=== PATIENT | female | born 1985 | race Caucasian/White ===

== ENCOUNTER → 2024-01-09 15:26 | Outpatient (BNVA) | payer OTHER, SELFPAY | PROVIDERS: PCP Family Medicine; Visit Provider Family Medicine | DX: Z13.220 Encounter for screening for lipoid disorders (principal); Z13.6 Encounter for screening for cardiovascular disorders; R42 Dizziness and giddiness; Z76.89 Persons encountering health services in other specified circumstances | CPT/HCPCS: 80053; 80061; 85025 ==

== ENCOUNTER → 2025-03-31 15:17 | Outpatient (BNVA) | payer OTHER, SELFPAY | PROVIDERS: PCP Family Medicine; Visit Provider Nurse Practitioner | DX: S82.64XA Nondisplaced fracture of lateral malleolus of right fibula, initial encounter for closed fracture (principal); S93.401A Sprain of unspecified ligament of right ankle, initial encounter; W19.XXXA Unspecified fall, initial encounter | CPT/HCPCS: 73610 ==

== ENCOUNTER → 2025-04-13 16:05 | Outpatient (BNVA) | payer OTHER, SELFPAY | PROVIDERS: PCP Family Medicine; Visit Provider Nurse Practitioner | DX: S82.64XD Nondisplaced fracture of lateral malleolus of right fibula, subsequent encounter for closed fracture with routine healing (principal); X58.XXXD Exposure to other specified factors, subsequent encounter | CPT/HCPCS: 73610; 73630 ==

== ENCOUNTER 2025-04-28 15:51 | Outpatient (CLI) | payer OTHER, SELFPAY ==
--- NOTE | 2025-04-28 16:00 | MRR_ITS ---
PROCEDURE INFORMATION: Exam: MR Right Lower Extremity Joint Without Contrast; Ankle Exam date and time: 04/28/2025 4:06 PM Age: 40 years old Clinical indication: Injury or trauma; Sprain or strain; Ankle; Right; Additional info: Right ankle pain. Sprain. TECHNIQUE: Imaging protocol: Magnetic resonance imaging of the right lower extremity without contrast. Exam focused on the ankle. COMPARISON: CR XR ankle RT min 3V* [id number] 04/13/2025 4:09 PM FINDINGS: Bones/joints: Subacute avulsion fracture of the inferior tip of the lateral malleolus with marrow edema. Prominent marrow contusion of the talus with subtle intratrabecular impaction fracture medially. No evidence of displaced talar fracture. Talar dome is intact. Marrow contusion of the medial malleolus also noted as well as subtle avulsive injury off the lateral aspect of the tibial metaphysis in the region of the syndesmosis compatible with subtle avulsive injury. Marrow contusion of the anterior calcaneus noted without convincing evidence of fracture. Small-moderate tibiotalar and small subtalar joint effusions. LIGAMENTS: Distal tibiofibular syndesmosis: Intact. Mild sprain of the anterior distal tib-fib syndesmotic ligament. Anterior talofibular ligament: Severe sprain of the anterior talofibular ligament with partial-thickness tear. There is avulsion injury of the inferior tip of the lateral malleolus at the fibular attachment. Posterior talofibular ligament: Intact. Calcaneofibular ligament: Severe sprain with partial-thickness tear and avulsive injury at the fibular attachment. Deltoid ligament complex: Intact. There is evidence of sprain of the deep deltoid fibers. TENDONS: Flexor tendons of foot: Intact. Tibialis posterior tendon: Intact. Os navicular noted. Peroneal tendons: Intact. Mild tenosynovitis. Extensor tendons of foot: Intact. Tibialis anterior tendon: Intact. Achilles tendon: Intact. Plantar fascia: Plantar fascia is intact. MR/MR ankle RT wo con* [id number] IMPRESSION: 1. Recent supination injury with severe sprains of the anterior talofibular and calcaneofibular ligaments with avulsive injury of the lateral malleolus and suspected partial tears. Consider follow-up exam in 4-6 weeks to reassess when edema subsides. 2. Sprain of the deep deltoid fibers. 3. Multifocal marrow contusions. Suspected subtle intratrabecular impaction fracture of the medial aspect of the talar body.
== END 2025-04-28 15:52 | disposition home or self-care (01) ==
LOC: RAD 15:52
PROVIDERS: PCP Family Medicine; Visit Provider Nurse Practitioner
DX: S82.64XA Nondisplaced fracture of lateral malleolus of right fibula, initial encounter for closed fracture (principal); S93.421A Sprain of deltoid ligament of right ankle, initial encounter; S93.491A Sprain of other ligament of right ankle, initial encounter; X58.XXXA Exposure to other specified factors, initial encounter
CPT/HCPCS: 73721

== ENCOUNTER → 2025-05-05 08:23 | Outpatient (BNVA) | payer OTHER, SELFPAY | PROVIDERS: PCP Family Medicine; Visit Provider Family Medicine | DX: R30.0 Dysuria (principal); R42 Dizziness and giddiness; R51.9 Headache, unspecified; G89.29 Other chronic pain; Z13.220 Encounter for screening for lipoid disorders; Z13.6 Encounter for screening for cardiovascular disorders; R41.89 Other symptoms and signs involving cognitive functions and awareness; H53.9 Unspecified visual disturbance | CPT/HCPCS: 80053; 80061; 81000; 82306; 82533; 82607; 82670; 82746; 84144; 84439; 84443; 85025; 85651; 86038; 86140; 86200; 86431; 87086 ==

== ENCOUNTER 2025-05-21 15:10 | Outpatient (CLI) | payer OTHER, SELFPAY ==
--- NOTE | 2025-05-21 15:15 | MRR_ITS ---
PROCEDURE INFORMATION: Exam: MR Head Without Contrast Exam date and time: 05/21/2025 3:50 PM Age: 40 years old Clinical indication: Pain; Headache not specified; Headache, vertigo and muscle spasms; Additional info: R41.89 - other symptoms and signs involving cognitive fun. . . TECHNIQUE: Imaging protocol: Magnetic resonance imaging of the head without contrast. COMPARISON: No relevant prior studies available. FINDINGS: Brain: Nonspecific multiple foci of high FLAIR signal in bilateral centrum semiovale, likely representing ischemic small vessel disease. No acute infarct, intracranial bleed or intracranial mass. Cerebral ventricles: Normal. No ventriculomegaly. Bones: Unremarkable. Paranasal sinuses: Normal as visualized. No acute sinusitis. Mastoid air cells: Mild mucosal disease of the left mastoid air cells. Orbital cavities: Unremarkable. Soft tissues: Unremarkable. MR/MR head wo con* [id number] IMPRESSION: No acute infarct, intracranial bleed or intracranial mass.
== END 2025-05-21 15:11 | disposition home or self-care (01) ==
LOC: RAD 15:11
PROVIDERS: PCP Family Medicine; Visit Provider Family Medicine
DX: R41.89 Other symptoms and signs involving cognitive functions and awareness (principal); R42 Dizziness and giddiness; R51.9 Headache, unspecified; G89.29 Other chronic pain; H74.8X2 Other specified disorders of left middle ear and mastoid; R93.0 Abnormal findings on diagnostic imaging of skull and head, not elsewhere classified
CPT/HCPCS: 70551

== ENCOUNTER → 2025-06-02 11:38 | Outpatient (BNVA) | payer OTHER, SELFPAY | PROVIDERS: PCP Family Medicine; Visit Provider Podiatrist Foot & Ankle Surgery | DX: S92.101A Unspecified fracture of right talus, initial encounter for closed fracture (principal); S92.124A Nondisplaced fracture of body of right talus, initial encounter for closed fracture; X58.XXXA Exposure to other specified factors, initial encounter | CPT/HCPCS: 73610 ==

== ENCOUNTER 2025-06-23 09:33 | Outpatient (CLI) | payer OTHER, SELFPAY ==
--- NOTE | 2025-06-23 09:30 | MRR_ITS ---
PROCEDURE INFORMATION: Exam: MR Right Lower Extremity Joint Without Contrast; Ankle Exam date and time: 06/23/2025 9:42 AM Age: 40 years old Clinical indication: Injury or trauma; Other: Not specified; Blunt trauma; Ankle; Right; Injury details: Injury 3 months ago, pain since, follow up poss. Talus FX. Still having lots of pain; Additional info: Talus fracture TECHNIQUE: Imaging protocol: Magnetic resonance imaging of the right lower extremity without contrast. Exam focused on the ankle. 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 There is a small tibiotalar joint effusion. There is a small effusion of the posterior facet, subtalar joint. LIGAMENTS: Distal tibiofibular syndesmosis: The distal tibial/fibular syndesmotic ligaments are normal. Anterior talofibular ligament: Thickening and increased internal signal of the anterior talofibular ligament consistent with partial-thickness tear. Posterior talofibular ligament: The posterior talofibular ligament is normal. Calcaneofibular ligament: Thickening and increased internal signal of the calcaneofibular ligament consistent with partial-thickness tear. Deltoid ligament complex: There is a partial-thickness tear of the deep deltoid ligament. TENDONS: Flexor tendons of foot: The flexor tendons are unremarkable. Tibialis posterior tendon: The tibialis posterior tendon is unremarkable. Peroneal tendons: Peroneus longus is normal. The peroneus brevis tendon is normal in appearance. Extensor tendons of foot: The extensor tendons are unremarkable. Tibialis anterior tendon: Tibialis anterior tendon is unremarkable. Achilles tendon: The Achilles tendon is unremarkable. Tarsal canal (Sinus tarsi): The sinus tarsi is unremarkable. Normal fat signal. Tarsal tunnel: Tarsal tunnel is unremarkable. Soft tissues: Unremarkable. Plantar fascia: Plantar fascia is unremarkable. MR/MR ankle RT wo con* [id number] IMPRESSION: 1. Thickening and increased internal signal of the anterior talofibular ligament consistent with partial-thickness tear. 2. Thickening and increased internal signal of the calcaneofibular ligament consistent with partial-thickness tear. 3. There is a partial-thickness tear of the deep deltoid ligament.
== END 2025-06-23 09:34 | disposition home or self-care (01) ==
LOC: RAD 09:34
PROVIDERS: PCP Family Medicine; Visit Provider Podiatrist Foot & Ankle Surgery
DX: S92.101A Unspecified fracture of right talus, initial encounter for closed fracture (principal); X58.XXXA Exposure to other specified factors, initial encounter
CPT/HCPCS: 73721